=== PATIENT | male | born 1990 | race Caucasian/White ===

== ENCOUNTER 2017-07-13 22:11 | Emergency (ER) | payer BC, OTHER ==
[2017-07-13 22:19] VITALS: BP 139/70; PULSE 68; RESP 18; TEMP 98.2; O2SAT 96
[2017-07-13] MEDS ORDERED: TDAP ADULT 0.5 ML INJ (BOOSTRIX) IM ONE (22:38)
--- NOTE | 2017-07-13 22:38 | EDPHY ---
H & P Time Seen by Provider: 07/13/17 22:25 HPI/ROS: CHIEF COMPLAINT: Left thumb laceration HISTORY OF PRESENT ILLNESS: 26-year-old male presents to the emergency department with injury to his left thumb. The patient was at home and accidentally cut his left thumb with a knife. The incident happened just prior to arrival. He is right-hand dominant. He was able to control the bleeding with firm direct pressure. He denies any other trauma or injury. He is unsure of his last tetanus shot. ROS: Denies numbness or tingling in his fingers, retained foreign body. Past Medical/Surgical History: Negative Social History: Single Physical Exam: On examination the patient has a 2 cm flap laceration to the distal, palmar aspect of the left thumb. There is also laceration that extends into the nail. There is no subungual hematoma. No active bleeding from the nail wound. No palpable bony tenderness. Full range of motion of his left thumb. The other fingers do not appear injured. Constitutional: Initial Vital Signs Temperature (C) 36.8 C 07/13/17 22:15 Heart Rate 68 07/13/17 22:15 Respiratory Rate 18 07/13/17 22:15 Blood Pressure 139/70 H 07/13/17 22:15 O2 Sat (%) 96 07/13/17 22:15 O2 Delivery Mode Room Air Home Medications: Medication Instructions Recorded NK [No Known Home Meds] 07/13/17 MDM/Departure - MDM Procedures: Laceration repair. Verbal consent was obtained from the patient. The 2 cm flap laceration on the left thumb was anesthetized using digital block using 1% lidocaine without epinephrine 0.5% bupivacaine without epinephrine. The wound was irrigated with saline, draped and explored to its base with a gloved finger. There were no deep structures involved. No tendon injury was identified. The wound was repaired with 5 0 Ethilon, 5 sutures. The wound repair was simple. The procedure was performed by myself. ED Course/Re-evaluation: 26-year-old male presents emergency department with left thumb injury. Patient' s tetanus shot was updated. The wound was repaired, see procedure note. He was given wound care precautions. - Depart Disposition: Home, Routine, Self-Care Clinical Impression: Laceration of left thumb Qualifiers: Encounter type: initial encounter Damage to nail status: with damage Foreign body presence: without foreign body Qualified Code(s): S61.112A - Laceration without foreign body of left thumb with damage to nail, initial encounter Condition: Good Instructions: Care For Your Stitches (ED), Laceration (ED), Acute Wounds (ED) Additional Instructions: Wound Care Follow-Up: Removal of sutures in 10 days. Suture removal is complimentary in uncomplicated cases. Infection or abnormal findings would require reevaluation by the MD. In that case, you may be billed. Ibuprofen 600mg every 8 hours for pain as directed. Return if you notice any signs or symptoms of infection. Keep wound dry, clean and protected. Your given a tetanus shot today in the emergency department. Referrals: Marla Meredith MD [Medical Doctor] - As per Instructions (Primary care provider integration aide)
== END 2017-07-13 23:09 | disposition home or self-care (01) ==
PROC: 0HQGXZZ Repair Left Hand Skin, External Approach (ICD-10-PCS; principal; 2017-07-13)
DX: S61.112A Laceration without foreign body of left thumb with damage to nail, initial encounter (principal); Z23 Encounter for immunization; W26.0XXA Contact with knife, initial encounter; Y92.009 Unspecified place in unspecified non-institutional (private) residence as the place of occurrence of the external cause; Y93.G1 Activity, food preparation and clean up